=== PATIENT | female | born 1975 | race Caucasian/White ===

== ENCOUNTER 2024-06-09 20:14 | Emergency (ER) | payer BC, SELFPAY ==
[2024-06-09 20:31] VITALS: BP 179/90; PULSE 89; TEMP 36.7; O2SAT 98; BMI 28.7
--- NOTE | 2024-06-09 20:57 | ECG_ITS ---
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
--- NOTE | 2024-06-09 20:57 | CT_ITS ---
The [address] [address] Patient Name: MARILU RAZA MRN: [id number] date: 1975 Sex: F Assigned Patient Location: ED.MAIN Current Patient Location: ER Accession/Order Number: [id number] Exam Date: 06/09/2024 21:38 Report Date: 06/09/2024 21:54 At the request of: GUSTAVO ALONSO Procedure: CT head/brain wo con EXAM: CT head/brain wo con HISTORY: Hallucinations COMPARISON: None. TECHNIQUE: Axial CT scans through the head were obtained without IV contrast administration. Dose reduction techniques were achieved by using: automated exposure control and/or adjustment of mA and /or kV according to patient size and/or use of iterative reconstruction technique. FINDINGS: There is no acute intracranial hemorrhage or abnormal extra-axial fluid collection. No mass effect or midline shift is seen. There is no evidence of large acute territorial infarction. There is no hydrocephalus. To the limit of CT, the posterior fossa appears unremarkable. The calvaria and extra cranial soft tissues are unremarkable. The visualized orbits show no abnormality. The visualized paranasal sinuses show no air-fluid level. Mastoid air cells are clear. CT/CT head/brain wo con IMPRESSION: No acute intracranial process. Electronically authenticated by: SLY STEVENSON Date: 06/09/2024 21:54
--- NOTE | 2024-06-09 20:58 | ED_ITS ---
HPI - Anxiety General Chief Complaint: Anxiety Stated Complaint: Anxiety/Situational Crisis Time Seen by Provider: 06/09/24 20:38 Source: patient Mode of arrival: walk-in Limitations: no limitations History of Present Illness HPI narrative: 48-year-old female presents to the emergency department for evaluation of anxiety. She is going through a divorce and it has been very stressful. Over the past few days she has been hearing her 's voice telling her things but she is not sure what it is. She has had no thoughts of harming herself and has not harmed herself in any way. She is brought in by a friend. The friend works at a campground where the patient is now staying. The friend reports also that she has expressed no thoughts of harming herself. The patient states that she last used marijuana last week and had 1 beer today. She is talking about having Lynne blood and that butterflies make her happy. She got scared today because she picked up her daughter from school and she saw a bag and thought something might be in it. She cannot specify what that might have been. Related Data Allergies Allergy/AdvReac Type Severity Reaction Status Date / Time Penicillins Allergy Mild HIVES Verified 06/09/24 20:31 Review of Systems ROS Narrative A ten point review of systems is negative except as noted above. PFSH PFSH Social History Little interest or pleasure in doing things: several days Feeling down, depressed, or hopeless: nearly every day Exam Narrative Exam Narrative: Nurses note and vital signs reviewed and patient is not hypoxic. General: The patient appears in no apparent distress. Patient is resting comfortably on cart. Skin: Warm, dry, no pallor noted. There is no rash noted. Head: Normocephalic, atraumatic Eye: Normal conjunctiva, no drainage, EOMI. PERRL Ears, Nose, Mouth, and Throat: oral mucosa is moist. Nares patent. Cardiovascular: Regular Rate and Rhythm Respiratory: Patient is in no distress, no accessory muscle use, lungs are clear to auscultation, no wheezing, rales or rhonchi Back: non-tender GI: Soft and nontender Musculoskeletal: The patient has no evidence of calf tenderness, no pitting edema, symmetrical pulses noted bilaterally Neurological: She is awake and alert and oriented x 4. Upper and lower extremity strength intact. Psychiatric: Cooperative. She seems to have some difficulty concentrating. Constitutional Vital Signs, click to edit/add: Last Vital Signs Temp 98.1 F 06/09/24 20:31 Pulse 78 06/09/24 21:35 Resp 18 06/09/24 21:35 BP 142/75 H 06/09/24 21:35 Pulse Ox 96 06/09/24 21:35 O2 Del Method Room Air 06/09/24 20:31 Course Vital Signs Vital signs: Vital Signs Temperature 98.1 F 06/09/24 20:31 Pulse Rate 89 06/09/24 20:31 Respiratory Rate 18 06/09/24 20:31 Blood Pressure 179/90 H 06/09/24 20:31 Pulse Oximetry 98 06/09/24 20:31 Oxygen Delivery Method Room Air 06/09/24 20:31 Temperature 98.1 F 06/09/24 20:31 Pulse Rate 78 06/09/24 21:35 Respiratory Rate 18 06/09/24 21:35 Blood Pressure 142/75 H 06/09/24 21:35 Pulse Oximetry 96 06/09/24 21:35 Oxygen Delivery Method Room Air 06/09/24 20:31 MDM - Anxiety MDM Narrative Medical decision making narrative: The patient is medically cleared. She has been evaluated by mental health services and is being transferred to psychiatric facility. Differential Diagnosis Differential diagnosis: Likely panic disorder, acute anxiety and other (Depression) Lab Data Attestation: I reviewed the patient's lab results. Labs: Lab Results 06/09/24 06/09/24 Range/Units 21:15 21:16 WBC 9.4 (4.0-11.0) 10^3/uL RBC 4.29 (4.20-5.40) 10^6/uL Hgb 10.9 L (12.0-16.0) g/dL Hct 35.2 L (36.0-48.0) % MCV 82.1 (81.0-99.0) fL MCH 25.4 L (26.7-34.0) pg MCHC 31.0 (29.9-35.2) g/dL RDW 15.6 H (11.0-15.0) % Plt Count 241 (150-450) 10^3/uL MPV 12.3 (9.5-13.5) fL Neut % (Auto) 64.7 (43.0-75.0) % Lymph % (Auto) 21.7 (20.5-60.0) % [place] % (Auto) 11.0 (1.7-12.0) % Eos % (Auto) 1.8 (0.9-7.0) % Baso % (Auto) 0.5 (0.2-2.0) % Neut # (Auto) 6.1 (1.4-6.5) 10^3/uL Lymph # (Auto) 2.0 (1.2-3.8) 10^3/uL [place] # (Auto) 1.0 H (0.3-0.8) 10^3/uL Eos # (Auto) 0.2 (0.0-0.7) 10^3/uL Baso # (Auto) 0.1 (0.0-0.1) 10^3/uL Abs Immat Gran (auto) 0.03 (0.00-0.03) 10^3/uL Imm/Tot Granulo (auto) 0.3 (0.0-0.5) % Sodium 137 (136-145) mmol/L Potassium 3.2 L (3.5-5.1) mmol/L Chloride 101 (98-107) mmol/L Carbon Dioxide 30.0 (21.0-32.0) mmol/L Anion Gap 9.2 BUN 11.0 (7.0-18.0) mg/dL Creatinine 0.79 (0.55-1.02) mg/dL Est GFR ( Amer) >60 (>=60) Est GFR (Non-Af Amer) >60 (>=60) BUN/Creatinine Ratio 13.9 Glucose 100 (74-106) mg/dL Calcium 8.6 (8.5-10.1) mg/dL Total Bilirubin 0.3 (0.2-1.0) mg/dL Direct Bilirubin 0.1 (0.0-0.2) mg/dL AST 19 (15-37) U/L ALT 28 (14-59) U/L Alkaline Phosphatase 87 (46-116) U/L Total Protein 7.2 (6.4-8.2) g/dL Albumin 3.3 L (3.4-5.0) g/dL Globulin 3.9 g/dL Albumin/Globulin Ratio 0.8 Serum HCG, Qual Negative (NEGATIVE) Urine Color Lt. yellow (YELLOW) Urine Clarity Clear (CLEAR) Urine pH 6.5 (5.0-9.0) Ur Specific [place] 1.010 (1.005-1.025) Urine Protein Negative (NEG/TRACE) mg/dL Urine Glucose (UA) Negative (NEGATIVE) mg/dL Urine Ketones Negative (NEGATIVE) mg/dL Urine Occult Blood Moderate A (NEGATIVE) Urine Nitrite Negative (NEGATIVE) Urine Bilirubin Negative (NEGATIVE) Urine Urobilinogen 0.2 (0.2-1.0) EU/dL Ur Leukocyte Esterase Negative (NEGATIVE) Urine RBC 0-2 (0-2) #/HPF Urine WBC 0-2 A (NONE SEEN) #/HPF Ur Squamous Epith Cells Many A (NONE/RARE) #/LPF Urine Crystals None seen (None Seen) #/HPF Urine Bacteria Trace A (NONE SEEN) #/HPF Urine Casts None seen (NONE SEEN) #/LPF Urine Mucus Trace A (NONE SEEN) Salicylates <2.8 (<=19.9) mg/dL Urine Opiates Screen Negative (NEGATIVE) Ur Buprenorphine Scrn Negative (NEGATIVE) Ur Oxycodone Screen Negative (NEGATIVE) Urine Methadone Screen Negative (NEGATIVE) Acetaminophen <2.0 L (10.0-30.0) ug/mL Ur Barbiturates Screen Negative (NEGATIVE) U Tricyclic Antidepress Negative (NEGATIVE) Ur Phencyclidine Scrn Negative (NEGATIVE) Ur Amphetamines Screen Negative (NEGATIVE) U Methamphetamines Scrn Negative (NEGATIVE) U Benzodiazepines Scrn Negative (NEGATIVE) Urine Cocaine Screen Negative (NEGATIVE) U Cannabinoids Screen Negative (NEGATIVE) Ethanol Quant <3 mg/dL ECG Data Attestation: I personally reviewed and interpreted this ECG as follows: (EKG on my interpretation shows normal sinus rhythm with a rate of 78 and no acute change.) Discharge Plan Discharge Chief Complaint: Anxiety Clinical Impression: Acute anxiety Patient Disposition: [facility] Time of Disposition Decision: 06:45 Discharge location: [facility] Condition: Fair Mode of Transportation: EMS
[2024-06-09 21:30] LABS: Basophils Absolute Auto 0.1 10^3/uL (0.0-0.1); Basophils Percent Auto 0.5 % (0.2-2.0); Eosinophils Absolute Auto 0.2 10^3/uL (0.0-0.7); Eosinophils Percent Auto 1.8 % (0.9-7.0); Hematocrit 35.2 % (36.0-48.0); Hemoglobin 10.9 g/dL (12.0-16.0); Immature Granulocytes Abs Auto 0.03 10^3/uL (0.00-0.03); Immature Granulocytes Pct Auto 0.3 % (0.0-0.5); Lymphocytes Percent Auto 21.7 % (20.5-60.0); Mean Corpuscular Hemoglobin 25.4 pg (26.7-34.0); Mean Corpuscular Volume 82.1 fL (81.0-99.0); Mean Platelet Volume 12.3 fL (9.5-13.5); Neutrophils Absolute Auto 6.1 10^3/uL (1.4-6.5); Neutrophils Percent Auto 64.7 % (43.0-75.0); Platelet Count 241 10^3/uL (150-450); Red Blood Count 4.29 10^6/uL (4.20-5.40); Red Cell Distribution Width 15.6 % (11.0-15.0); White Blood Count 9.4 10^3/uL (4.0-11.0)
[2024-06-09 21:35] VITALS: BP 142/75; PULSE 78; O2SAT 96
[2024-06-09 21:42] LABS: Bilirubin Urine NEGATIVE (NEGATIVE); Blood Urine MODERATE (NEGATIVE); Clarity Urine CLEAR (CLEAR); Color Urine LT. YELLOW (YELLOW); Glucose Urine UA NEGATIVE (NEGATIVE); Ketones Urine NEGATIVE (NEGATIVE); Leukocyte Esterase Urine NEGATIVE (NEGATIVE); Nitrite Urine NEGATIVE (NEGATIVE); Protein Urine NEGATIVE (NEG/TRACE); Urobilinogen Urine 0.2 EU/dL (0.2-1.0); pH Urine 6.5 (5.0-9.0)
[2024-06-09 21:42] LABS: HCG Qualitative NEGATIVE (NEGATIVE); Internal Control Within Normal Limits
[2024-06-09 21:46] LABS: Alanine Aminotransferase 28 U/L (14-59); Albumin Globulin Ratio 0.8; Albumin Level 3.3 g/dL (3.4-5.0); Alkaline Phosphatase 87 U/L (46-116); Anion Gap 9.2; Aspartate Amino Transferase 19 U/L (15-37); BUN Creatinine Ratio 13.9; Bilirubin Direct 0.1 mg/dL (0.0-0.2); Bilirubin Total 0.3 mg/dL (0.2-1.0); Calcium 8.6 mg/dL (8.5-10.1); Chloride 101 mmol/L (98-107); Estimated GFR (African America >60 (>=60); Estimated GFR (Non-African Ame >60 (>=60); Globulin 3.9 g/dL; Glucose 100 mg/dL (74-106); Potassium 3.2 mmol/L (3.5-5.1); Salicylate <2.8 mg/dL (<=19.9); Sodium 137 mmol/L (136-145); Total Protein 7.2 g/dL (6.4-8.2)
--- NOTE | 2024-06-09 21:52 | PC.NURSE ---
Call placed to [facility] and spoke with Jory. Update given to [facility]. Patient speaking on phone to Jory from [facility] at this time.
[2024-06-09 21:54] LABS: Amphetamine Screen Urine NEGATIVE (NEGATIVE); Barbiturates Screen Urine NEGATIVE (NEGATIVE); Benzodiazepines Screen Urine NEGATIVE (NEGATIVE); Buprenorphine Screen Urine NEGATIVE (NEGATIVE); Cannabinoid Screen Urine NEGATIVE (NEGATIVE); Cocaine Screen Urine NEGATIVE (NEGATIVE); Methadone Screen Urine NEGATIVE (NEGATIVE); Methamphetamines Screen Urine NEGATIVE (NEGATIVE); Opiate Screen Urine NEGATIVE (NEGATIVE); Oxycodone Screen Urine NEGATIVE (NEGATIVE); Phencyclidine Screen Urine NEGATIVE (NEGATIVE); Tricyclic Antidepressant Urine NEGATIVE (NEGATIVE)
[2024-06-09 22:01] LABS: Bacteria Urine TRACE #/HPF (NONE SEEN); Mucus Urine TRACE (NONE SEEN); RBC Urine 0-2 #/HPF (0-2); Squamous Epithelial Cell Urine MANY #/LPF (NONE/RARE); WBC Urine 0-2 #/HPF (NONE SEEN)
[2024-06-09 22:02] LABS: Cast Seen? NONE SEEN #/LPF (NONE SEEN); Crystals Seen? None Seen #/HPF (None Seen)
[2024-06-09 22:03] LABS: Acetaminophen <2.0 ug/mL (10.0-30.0)
[2024-06-09 22:04] LABS: Ethanol <3 mg/dL
--- NOTE | 2024-06-09 22:07 | PC.NURSE ---
Jory finishes speaking with patient, she relays she will have a counselor call facility and speak with patient when a counselor is available.
--- NOTE | 2024-06-10 00:42 | PC.NURSE ---
Patient speaking with [facility] counselor Nohelia via video conference call at this time.
[2024-06-10 07:40] VITALS: BP 138/78; PULSE 78; O2SAT 98
--- NOTE | 2024-06-10 08:36 | PC.NURSE ---
[facility] here to slate picker patient to transport. bedside report given with no questions. Patients son called while being transferred and asked patient if we could give out information patient agreed. Son was updated on patient condition.
== END 2024-06-10 08:48 ==
PROVIDERS: Emergency Provider Emergency Medicine
DX: F41.9 Anxiety disorder, unspecified (principal)
CPT/HCPCS: 36415; 70450; 80048; 80076; 80179; 80307; 80320; 80329; 81001; 84703; 85025; 93005; 99285